=== PATIENT | female | born 1945 | race Caucasian/White ===

== ENCOUNTER 2021-01-19 09:23 | Inpatient (IN) | payer MEDICARE ==
[2021-01-19] MEDS ORDERED: Acetaminophen/HYDROcodone 325-5 MG Tab PO PRN (12:28)
[2021-01-19] MEDS ORDERED: Carboxymethylcellulose Sodium 0.5% Ophth Soln 0.4 ML UD Box of 30 EYEBOTH PRN (12:57)
--- NOTE | 2021-01-19 17:57 | PCM.HP.2 ---
H&P History of Present Illness - General Date of Service: 01/19/21 Admit Problem/Dx: Admission Diagnosis/Problem Admission Diagnosis/Problem Ankle fracture Source of Information: Patient, Old Records History Limitations: Reports: No Limitations - History of Present Illness Initial Comments - Free Text/Narative: This is 75-year-old female patient was at her friend's house and walked outside on a mat slipped and she fell and broke her right ankle. Had repaired in [facility]. She has no concerns or. No chest pressure was better. She says she is a little bit of right rib pain from a fracture that's healing from a former fall. - Related Data Allergies/Adverse Reactions: Allergies Allergy/AdvReac Type Severity Reaction Status Date / Time lisinopril Allergy Cough Verified 01/19/21 15:20 Home Medications: Home Meds Aspirin [Aspirin EC] 325 mg PO BID 01/19/21 [History] Cholecalciferol (Vitamin D3) [Vitamin D3] 25 mcg PO DAILY 01/19/21 [History] Cyanocobalamin (Vitamin B-12) [Vitamin B-12] 1,000 mcg PO MOWEFR 01/19/21 [History] Hydrocodone/Acetaminophen [Hydrocodon-Acetaminophen 5-325] 1 tab PO Q4H PRN 01/19/21 [History] Isosorbide Mononitrate [Imdur] 30 mg PO DAILY 01/19/21 [History] Levothyroxine [Synthroid] 50 mcg PO SUTUWETHSA 01/19/21 [History] Levothyroxine [Synthroid] 75 mcg PO MOFR 01/19/21 [History] Losartan/Hydrochlorothiazide [Losartan-HCTZ 100-12.5 MG] 1 tab PO DAILY 01/19/21 [History] Magnesium Oxide [Magnesium] 400 mg PO DAILY 01/19/21 [History] Metoprolol Succinate [Toprol Xl] 50 mg PO DAILY 01/19/21 [History] Polyvinyl Alcohol/Povidone/Pf [Refresh Classic Eye Drops] 2 drop EYEBOTH TID PRN 01/19/21 [History] Vit C/Vit E AC/Lut/Copper/Zinc [Preservision Lutein Softgel] 2 cap PO DAILY 01/19/21 [History] allopurinoL [Zyloprim] 100 mg PO DAILY 01/19/21 [History] atorvaSTATin [Lipitor] 20 mg PO BEDTIME 01/19/21 [History] Past Medical History Cardiovascular History: Reports: High Cholesterol, Hypertension Social & Family History - Family History Family Medical History: Unobtainable - Tobacco Use Tobacco Use Status *Q: Never Tobacco User - Caffeine Use Caffeine Use: Reports: Coffee - Recreational Drug Use Recreational Drug Use: No H&P Review of Systems - Review of Systems: Review Of Systems: See Below General: Reports: No Symptoms HEENT: Reports: No Symptoms Pulmonary: Reports: No Symptoms Cardiovascular: Reports: No Symptoms Gastrointestinal: Reports: No Symptoms Musculoskeletal: Reports: Other (See history of present illness) Psychiatric: Reports: No Symptoms Neurological: Reports: No Symptoms Hematologic/Lymphatic: Reports: No Symptoms Exam - Exam Exam: See Below - Vital Signs Vital Signs: Last Vital Signs Temp 97.2 F 01/19/21 11:30 Pulse 69 01/19/21 11:30 Resp 16 01/19/21 11:30 BP 134/82 01/19/21 11:30 Pulse Ox 96 01/19/21 11:30 Weight: 198 lb - Exam General: Alert, Oriented, Cooperative HEENT: Mucosa Moist & [place], Posterior Pharynx Clear, TMs Clear Neck: Supple, Trachea Midline Lungs: Clear to Auscultation, Normal Respiratory Effort Cardiovascular: Regular Rate, Regular Rhythm. No: Systolic Murmur GI/Abdominal Exam: Normal Bowel Sounds, Soft, Non-Tender, No Distention Back Exam: Normal Inspection Extremities: No Pedal Edema, Other (Cam Walker right foot) Skin: Warm, Dry, Intact Neurological: Normal Speech, Normal Tone Neuro Extensive - Mental Status: Alert, Oriented x3, Normal Mood/Affect, Normal Cognition Psychiatric: Alert, Normal Affect, Normal Mood Sepsis Event Note - Evaluation Sepsis Screening Result: No Definite Risk - Focused Exam Vital Signs: Vital Signs Temp Pulse Resp BP Pulse Ox Pulse Ox 01/19/21 11:30 97.2 F 69 16 134/82 96 01/19/21 11:24 95 - Problem List (1) Ankle fracture, bimalleolar, closed SNOMED Code(s): 44198635 ICD Code: S82.843A - DISPLACED BIMALLEOLAR FRACTURE OF UNSP LOWER LEG, INIT Status: Acute Current Visit: Yes Problem List Initiated/Reviewed/Updated: Yes Orders Last 24hrs: Active Orders 24 hr Category Date Time Status Patient Status [ADT] Routine ADT 01/19/21 11:42 Active Communication Order [RC] ASDIRECTED Care 01/19/21 16:03 Active May Shower [RC] ASDIRECTED Care 01/19/21 11:42 Active Oxygen Therapy [RC] PRN Care 01/19/21 11:42 Active Up With Assistance [RC] ASDIRECTED Care 01/19/21 11:42 Active Vital Signs [RC] DAILY Care 01/20/21 08:00 Active OT Evaluation and Treatment [CONS] Routine Cons 01/19/21 11:42 Active PT Evaluation and Treatment [CONS] Routine Cons 01/19/21 11:42 Active Regular Diet [DIET] Diet 01/19/21 Lunch Active Acetaminophen/HYDROcodone [[place] 325-5 MG] Med 01/19/21 12:28 Active 1 tab PO Q4H PRN Aspirin [Ecotrin] Med 01/19/21 21:00 Active 325 mg PO BID Carboxymethylcellulose Sodium [Refresh Plus 0.5%] Med 01/19/21 12:57 Active 1 each EYEBOTH TID PRN Cholecalciferol (Vitamin D3) [Vitamin D3] Med 01/20/21 09:00 Active 25 mcg PO DAILY Cyanocobalamin (Vitamin B12) [Vitamin B12] Med 01/20/21 09:00 Active 1,000 mcg PO MOWEFR Hydrochlorothiazide/Losartan [Hyzaar 100-12.5 MG] Med 01/20/21 09:00 Active 1 tab PO DAILY Isosorbide Mononitrate [Imdur] Med 01/20/21 09:00 Active 30 mg PO DAILY Levothyroxine Med 01/22/21 06:00 Active 75 mcg PO MoFr@0600 Levothyroxine [Synthroid] Med 01/20/21 06:00 Active 50 mcg PO SuTuWeThSa@0600 Lutein/Min/Vit C/Vit E Acetate [Ocuvite Lutein] Med 01/20/21 09:00 Active 2 each PO DAILY Magnesium Oxide Med 01/20/21 09:00 Active 400 mg PO DAILY Metoprolol Succinate [Toprol XL] Med 01/20/21 09:00 Active 50 mg PO DAILY allopurinoL [Zyloprim] Med 01/20/21 09:00 Active 100 mg PO DAILY atorvaSTATin [Lipitor] Med 01/19/21 21:00 Active 20 mg PO BEDTIME Resuscitation Status Routine Resus Stat 01/19/21 11:42 Ordered Medication Orders Hydrocodone Bitart/Acetaminophen (Acetaminophen/Hydrocodone 325-5 Mg Tab) 1 tab PO Q4H PRN PRN Reason: Pain Allopurinol (Allopurinol 100 Mg Tab) 100 mg PO DAILY [facility] Artificial Tears (Carboxymethylcellulose Sodium 0.5% Ophth Soln 0.4 Ml Ud Box Of 30) 1 each EYEBOTH TID PRN PRN Reason: Dry Eyes Aspirin (Aspirin 325 Mg Tab.Ec) 325 mg PO BID [facility] Stop: 03/05/21 09:01 Atorvastatin Calcium (Atorvastatin 20 Mg Tab) 20 mg PO BEDTIME [facility] Cholecalciferol (Cholecalciferol (Vitamin D3) 25 Mcg Tab) 25 mcg PO DAILY [facility] Cyanocobalamin (Cyanocobalamin (Vitamin B12) 1,000 Mcg Tab) 1,000 mcg PO MOWEFR [facility] HCTZ/Losartan Potassium (Hydrochlorothiazide/Losartan 12.5-100 Mg Tab) 1 tab PO DAILY [facility] Isosorbide Mononitrate (Isosorbide Mononitrate 30 Mg Tab.Er) 30 mg PO DAILY [facility] Levothyroxine Sodium (Levothyroxine 50 Mcg Tab) 50 mcg PO SuTuWeThSa@0600 [facility] Levothyroxine Sodium (Levothyroxine 75 Mcg Tab) 75 mcg PO MoFr@0600 [facility] Magnesium Oxide (Magnesium Oxide 400 Mg Tab) 400 mg PO DAILY [facility] Metoprolol Succinate (Metoprolol Succinate 50 Mg Tab.Er) 50 mg PO DAILY [facility] Vit C/Vit E/Zinc/Copper/Lutein (Lutein/Minerals/Vitamin C/Vitamin E Acetate Cap) 2 each PO DAILY [facility] Assessment/Plan Comment:: Swing bed. Full code ET/OT Regular diet Resume Up with assist but no weightbearing for-8 weeks on the right foot. - Mortality Measure Prognosis:: Good
[2021-01-19] MEDS: Acetaminophen 325 MG Tab PO PRN (18:24)
[2021-01-19] MEDS: atorvaSTATin 20 MG Tab PO SCH (21:05)
[2021-01-19] MEDS: Aspirin 325 MG Tab.EC PO SCH (21:05)
[2021-01-20] MEDS: Levothyroxine 50 MCG Tab PO SCH (05:07)
[2021-01-20] MEDS: Allopurinol 100 MG Tab PO SCH (08:05)
[2021-01-20] MEDS: Cholecalciferol (Vitamin D3) 25 MCG Tab PO SCH (08:05)
[2021-01-20] MEDS: Hydrochlorothiazide/Losartan 12.5-100 mg Tab PO SCH (08:05)
[2021-01-20] MEDS: Lutein/Minerals/Vitamin C/Vitamin E Acetate Cap PO SCH (08:05)
[2021-01-20] MEDS: Metoprolol Succinate 50 MG Tab.ER PO SCH (08:05)
[2021-01-20] MEDS: Isosorbide Mononitrate 30 MG Tab.ER PO SCH (08:06)
[2021-01-20] MEDS: Aspirin 325 MG Tab.EC PO SCH ×2 (08:06→20:15)
[2021-01-20] MEDS: Cyanocobalamin (Vitamin B12) 1,000 MCG Tab PO SCH (08:06)
[2021-01-20] MEDS: Magnesium Oxide 400 MG Tab PO SCH (08:06)
[2021-01-20] MEDS: Acetaminophen 325 MG Tab PO PRN ×2 (13:31→21:47)
[2021-01-20] MEDS: atorvaSTATin 20 MG Tab PO SCH (20:15)
[2021-01-21] MEDS: Levothyroxine 50 MCG Tab PO SCH (05:52)
[2021-01-21] MEDS: Hydrochlorothiazide/Losartan 12.5-100 mg Tab PO SCH (08:52)
[2021-01-21] MEDS: Aspirin 325 MG Tab.EC PO SCH ×2 (08:52→20:20)
[2021-01-21] MEDS: Lutein/Minerals/Vitamin C/Vitamin E Acetate Cap PO SCH (08:53)
[2021-01-21] MEDS: Magnesium Oxide 400 MG Tab PO SCH (08:53)
[2021-01-21] MEDS: Isosorbide Mononitrate 30 MG Tab.ER PO SCH (08:53)
[2021-01-21] MEDS: Metoprolol Succinate 50 MG Tab.ER PO SCH (08:54)
[2021-01-21] MEDS: Allopurinol 100 MG Tab PO SCH (08:55)
[2021-01-21] MEDS: Cholecalciferol (Vitamin D3) 25 MCG Tab PO SCH (08:55)
[2021-01-21] MEDS: Acetaminophen 325 MG Tab PO PRN ×2 (13:56→20:20)
[2021-01-21] MEDS: atorvaSTATin 20 MG Tab PO SCH (20:20)
[2021-01-22] MEDS: Levothyroxine 75 MCG Tab PO SCH (05:46)
[2021-01-22] MEDS: Allopurinol 100 MG Tab PO SCH (08:19)
[2021-01-22] MEDS: Aspirin 325 MG Tab.EC PO SCH ×2 (08:19→20:41)
[2021-01-22] MEDS: Cholecalciferol (Vitamin D3) 25 MCG Tab PO SCH (08:19)
[2021-01-22] MEDS: Isosorbide Mononitrate 30 MG Tab.ER PO SCH (08:20)
[2021-01-22] MEDS: Lutein/Minerals/Vitamin C/Vitamin E Acetate Cap PO SCH (08:20)
[2021-01-22] MEDS: Hydrochlorothiazide/Losartan 12.5-100 mg Tab PO SCH (08:20)
[2021-01-22] MEDS: Metoprolol Succinate 50 MG Tab.ER PO SCH (08:21)
[2021-01-22] MEDS: Magnesium Oxide 400 MG Tab PO SCH (08:22)
[2021-01-22] MEDS: Cyanocobalamin (Vitamin B12) 1,000 MCG Tab PO SCH (08:22)
[2021-01-22] MEDS: Acetaminophen 325 MG Tab PO PRN ×3 (09:42→21:42)
[2021-01-22] MEDS: atorvaSTATin 20 MG Tab PO SCH (20:41)
[2021-01-23] MEDS: Levothyroxine 50 MCG Tab PO SCH (05:01)
[2021-01-23] MEDS: Aspirin 325 MG Tab.EC PO SCH ×2 (08:06→20:26)
[2021-01-23] MEDS: Hydrochlorothiazide/Losartan 12.5-100 mg Tab PO SCH (08:07)
[2021-01-23] MEDS: Isosorbide Mononitrate 30 MG Tab.ER PO SCH (08:08)
[2021-01-23] MEDS: Magnesium Oxide 400 MG Tab PO SCH (08:09)
[2021-01-23] MEDS: Lutein/Minerals/Vitamin C/Vitamin E Acetate Cap PO SCH (08:10)
[2021-01-23] MEDS: Metoprolol Succinate 50 MG Tab.ER PO SCH (08:11)
[2021-01-23] MEDS: Cholecalciferol (Vitamin D3) 25 MCG Tab PO SCH (08:12)
[2021-01-23] MEDS: Allopurinol 100 MG Tab PO SCH (08:13)
[2021-01-23] MEDS: Acetaminophen 325 MG Tab PO PRN ×2 (11:08→20:27)
[2021-01-23] MEDS: atorvaSTATin 20 MG Tab PO SCH (20:26)
[2021-01-24] MEDS: Levothyroxine 50 MCG Tab PO SCH (06:10)
[2021-01-24] MEDS: Aspirin 325 MG Tab.EC PO SCH ×2 (08:07→20:30)
[2021-01-24] MEDS: Hydrochlorothiazide/Losartan 12.5-100 mg Tab PO SCH (08:07)
[2021-01-24] MEDS: Isosorbide Mononitrate 30 MG Tab.ER PO SCH (08:08)
[2021-01-24] MEDS: Lutein/Minerals/Vitamin C/Vitamin E Acetate Cap PO SCH (08:09)
[2021-01-24] MEDS: Magnesium Oxide 400 MG Tab PO SCH (08:09)
[2021-01-24] MEDS: Metoprolol Succinate 50 MG Tab.ER PO SCH (08:10)
[2021-01-24] MEDS: Cholecalciferol (Vitamin D3) 25 MCG Tab PO SCH (08:11)
[2021-01-24] MEDS: Allopurinol 100 MG Tab PO SCH (08:11)
[2021-01-24] MEDS: Acetaminophen 325 MG Tab PO PRN ×2 (09:25→20:30)
[2021-01-24] MEDS: atorvaSTATin 20 MG Tab PO SCH (20:29)
[2021-01-25] MEDS: Levothyroxine 75 MCG Tab PO SCH (05:49)
[2021-01-25] MEDS: Metoprolol Succinate 50 MG Tab.ER PO SCH (08:33)
[2021-01-25] MEDS: Cholecalciferol (Vitamin D3) 25 MCG Tab PO SCH (08:33)
[2021-01-25] MEDS: Lutein/Minerals/Vitamin C/Vitamin E Acetate Cap PO SCH (08:33)
[2021-01-25] MEDS: Allopurinol 100 MG Tab PO SCH (08:33)
[2021-01-25] MEDS: Isosorbide Mononitrate 30 MG Tab.ER PO SCH (08:34)
[2021-01-25] MEDS: Aspirin 325 MG Tab.EC PO SCH ×2 (08:34→20:05)
[2021-01-25] MEDS: Hydrochlorothiazide/Losartan 12.5-100 mg Tab PO SCH (08:34)
[2021-01-25] MEDS: Magnesium Oxide 400 MG Tab PO SCH (08:34)
[2021-01-25] MEDS: Cyanocobalamin (Vitamin B12) 1,000 MCG Tab PO SCH (09:20)
[2021-01-25] MEDS: atorvaSTATin 20 MG Tab PO SCH (20:05)
[2021-01-25] MEDS: Acetaminophen 325 MG Tab PO PRN (20:05)
[2021-01-26] MEDS: Levothyroxine 50 MCG Tab PO SCH (06:29)
[2021-01-26] MEDS: Aspirin 325 MG Tab.EC PO SCH ×2 (08:46→20:37)
[2021-01-26] MEDS: Hydrochlorothiazide/Losartan 12.5-100 mg Tab PO SCH (08:46)
[2021-01-26] MEDS: Isosorbide Mononitrate 30 MG Tab.ER PO SCH (08:47)
[2021-01-26] MEDS: Lutein/Minerals/Vitamin C/Vitamin E Acetate Cap PO SCH (08:48)
[2021-01-26] MEDS: Magnesium Oxide 400 MG Tab PO SCH (08:48)
[2021-01-26] MEDS: Metoprolol Succinate 50 MG Tab.ER PO SCH (08:48)
[2021-01-26] MEDS: Allopurinol 100 MG Tab PO SCH (08:49)
[2021-01-26] MEDS: Cholecalciferol (Vitamin D3) 25 MCG Tab PO SCH (08:49)
[2021-01-26] MEDS: Acetaminophen 325 MG Tab PO PRN ×2 (16:15→21:54)
[2021-01-26] MEDS: atorvaSTATin 20 MG Tab PO SCH (20:36)
[2021-01-27] MEDS: Levothyroxine 50 MCG Tab PO SCH (05:31)
[2021-01-27] MEDS: Acetaminophen 325 MG Tab PO PRN ×3 (05:33→20:37)
[2021-01-27] MEDS: Isosorbide Mononitrate 30 MG Tab.ER PO SCH (08:24)
[2021-01-27] MEDS: Hydrochlorothiazide/Losartan 12.5-100 mg Tab PO SCH (08:24)
[2021-01-27] MEDS: Aspirin 325 MG Tab.EC PO SCH ×2 (08:24→20:33)
[2021-01-27] MEDS: Magnesium Oxide 400 MG Tab PO SCH (08:25)
[2021-01-27] MEDS: Lutein/Minerals/Vitamin C/Vitamin E Acetate Cap PO SCH (08:25)
[2021-01-27] MEDS: Cholecalciferol (Vitamin D3) 25 MCG Tab PO SCH (08:26)
[2021-01-27] MEDS: Metoprolol Succinate 50 MG Tab.ER PO SCH (08:26)
[2021-01-27] MEDS: Cyanocobalamin (Vitamin B12) 1,000 MCG Tab PO SCH (08:26)
[2021-01-27] MEDS: Allopurinol 100 MG Tab PO SCH (08:27)
--- NOTE | 2021-01-27 08:52 | PCM.PN ---
- General Info Date of Service: 01/27/21 Admission Dx/Problem (Free Text): Admission Diagnosis/Problem Admission Diagnosis/Problem Ankle fracture Subjective Update: Patient states that she is doing quite well and has no new complaints or concerns at this time. She is looking forward to going home on Monday Functional Status: Reports: Pain Controlled, Tolerating Diet, Ambulating, Urinating - Review of Systems General: Reports: No Symptoms HEENT: Reports: No Symptoms Pulmonary: Reports: No Symptoms Cardiovascular: Reports: No Symptoms Gastrointestinal: Reports: No Symptoms Genitourinary: Reports: No Symptoms Musculoskeletal: Reports: Leg Pain Skin: Reports: No Symptoms Neurological: Reports: No Symptoms Psychiatric: Reports: No Symptoms - Patient Data Vitals - Most Recent: Last Vital Signs Temp 36.1 C 01/27/21 08:00 Pulse 62 01/27/21 08:26 Resp 16 01/27/21 08:00 BP 118/69 01/27/21 08:26 Pulse Ox 97 01/27/21 08:00 Weight - Most Recent: 89.811 kg Med Orders - Current: Current Medications Acetaminophen (Acetaminophen 325 Mg Tab) 650 mg PO Q6H PRN PRN Reason: Headache/Pain Last Admin: 01/26/21 21:54 Dose: 650 mg Documented by: Hydrocodone Bitart/Acetaminophen (Acetaminophen/Hydrocodone 325-5 Mg Tab) 1 tab PO Q4H PRN PRN Reason: Pain Allopurinol (Allopurinol 100 Mg Tab) 100 mg PO DAILY [facility] Last Admin: 01/27/21 08:27 Dose: 100 mg Documented by: Artificial Tears (Carboxymethylcellulose Sodium 0.5% Ophth Soln 0.4 Ml Ud Box Of 30) 1 each EYEBOTH TID PRN PRN Reason: Dry Eyes Aspirin (Aspirin 325 Mg Tab.Ec) 325 mg PO BID [facility] Stop: 03/05/21 09:01 Last Admin: 01/27/21 08:24 Dose: 325 mg Documented by: Atorvastatin Calcium (Atorvastatin 20 Mg Tab) 20 mg PO BEDTIME [facility] Last Admin: 01/26/21 20:36 Dose: 20 mg Documented by: Cholecalciferol (Cholecalciferol (Vitamin D3) 25 Mcg Tab) 25 mcg PO DAILY [facility] Last Admin: 01/27/21 08:26 Dose: 25 mcg Documented by: Cyanocobalamin (Cyanocobalamin (Vitamin B12) 1,000 Mcg Tab) 1,000 mcg PO MOWEFR [facility] Last Admin: 01/27/21 08:26 Dose: 1,000 mcg Documented by: HCTZ/Losartan Potassium (Hydrochlorothiazide/Losartan 12.5-100 Mg Tab) 1 tab PO DAILY [facility] Last Admin: 01/27/21 08:24 Dose: 1 tab Documented by: Isosorbide Mononitrate (Isosorbide Mononitrate 30 Mg Tab.Er) 30 mg PO DAILY [facility] Last Admin: 01/27/21 08:24 Dose: 30 mg Documented by: Levothyroxine Sodium (Levothyroxine 50 Mcg Tab) 50 mcg PO SuTuWeThSa@0600 [facility] Last Admin: 01/27/21 05:31 Dose: 50 mcg Documented by: Levothyroxine Sodium (Levothyroxine 75 Mcg Tab) 75 mcg PO MoFr@0600 [facility] Last Admin: 01/25/21 05:49 Dose: 75 mcg Documented by: Magnesium Oxide (Magnesium Oxide 400 Mg Tab) 400 mg PO DAILY [facility] Last Admin: 01/27/21 08:25 Dose: 400 mg Documented by: Metoprolol Succinate (Metoprolol Succinate 50 Mg Tab.Er) 50 mg PO DAILY [facility] Last Admin: 01/27/21 08:26 Dose: 50 mg Documented by: Vit C/Vit E/Zinc/Copper/Lutein (Lutein/Minerals/Vitamin C/Vitamin E Acetate Cap) 2 each PO DAILY [facility] Last Admin: 01/27/21 08:25 Dose: 2 each Documented by: Comments:: Patient was lying in bed supine, awake, alert, oriented, interactive, pleasant - Exam Quality Assessment: Supplemental Oxygen, DVT Prophylaxis, Skin Breakdown General: Alert, Oriented, Cooperative, No Acute Distress HEENT: EOMI Lungs: Clear to Auscultation Cardiovascular: Regular Rate, Regular Rhythm, No Murmurs GI/Abdominal Exam: Normal Bowel Sounds Extremities: Pedal Edema, Other (Protective boot on the right foot and lower leg, trace edema left lower leg) Peripheral Pulses: 2+: Radial (L), Radial (R), Dorsalis Pedis (L) Skin: Warm, Dry Neurological: No New Focal Deficit Psy/Mental Status: Alert, Normal Affect, Normal Mood Sepsis Event Note - Evaluation Sepsis Screening Result: No Definite Risk - Focused Exam Vital Signs: Vital Signs Temp Pulse Pulse Resp BP BP Pulse Ox 01/27/21 08:26 62 118/69 01/27/21 08:24 118/69 01/27/21 08:00 36.1 C 62 16 118/69 97 - Problem List & Annotations (1) Ankle fracture, bimalleolar, closed SNOMED Code(s): 97071910 Code(s): S82.843A - DISPLACED BIMALLEOLAR FRACTURE OF UNSP LOWER LEG, INIT Status: Acute Current Visit: Yes (2) Gout SNOMED Code(s): 53097926 Code(s): M10.9 - GOUT, UNSPECIFIED Status: Chronic Current Visit: Yes (3) Hypothyroid SNOMED Code(s): 84257538 Code(s): E03.9 - HYPOTHYROIDISM, UNSPECIFIED Status: Chronic Current Visit: Yes (4) Hyperlipidemia SNOMED Code(s): 88183178 Code(s): E78.5 - HYPERLIPIDEMIA, UNSPECIFIED Status: Chronic Current Visit: Yes (5) Hypertension SNOMED Code(s): 59502967 Code(s): I10 - ESSENTIAL (PRIMARY) HYPERTENSION Status: Chronic Current Visit: Yes - Problem List Review Problem List Initiated/Reviewed/Updated: Yes - My Orders Last 24 Hours: My Active Orders 01/26/21 17:40 CHHAYA Hose [Antiembolic Hose] [OM.PC] Routine - Plan Plan:: Up with assist but no weightbearing for-8 weeks on the right foot. Patient had follow-up appointment yesterday with podiatry. Received her protective boot and instructions for continued no weightbearing until the middle of February. She reports that she is doing well with her physical and occupational therapy and is working on her balance. She reports improved upper body strength. He had no new concerns or complaints at this time. Continue current treatment Disposition: Likely home with assistance on 01/29/2021
[2021-01-27] MEDS: atorvaSTATin 20 MG Tab PO SCH (20:33)
[2021-01-28] MEDS: Levothyroxine 50 MCG Tab PO SCH (06:18)
[2021-01-28] MEDS: Hydrochlorothiazide/Losartan 12.5-100 mg Tab PO SCH (08:46)
[2021-01-28] MEDS: Aspirin 325 MG Tab.EC PO SCH ×2 (08:46→21:09)
[2021-01-28] MEDS: Isosorbide Mononitrate 30 MG Tab.ER PO SCH (08:47)
[2021-01-28] MEDS: Lutein/Minerals/Vitamin C/Vitamin E Acetate Cap PO SCH (08:47)
[2021-01-28] MEDS: Magnesium Oxide 400 MG Tab PO SCH (08:47)
[2021-01-28] MEDS: Cholecalciferol (Vitamin D3) 25 MCG Tab PO SCH (08:48)
[2021-01-28] MEDS: Allopurinol 100 MG Tab PO SCH (08:48)
[2021-01-28] MEDS: Metoprolol Succinate 50 MG Tab.ER PO SCH (08:48)
[2021-01-28] MEDS: Acetaminophen 325 MG Tab PO PRN ×2 (15:39→21:11)
[2021-01-28] MEDS: atorvaSTATin 20 MG Tab PO SCH (21:10)
[2021-01-29] MEDS: Levothyroxine 75 MCG Tab PO SCH (05:35)
[2021-01-29] MEDS: Hydrochlorothiazide/Losartan 12.5-100 mg Tab PO SCH (09:19)
[2021-01-29] MEDS: Aspirin 325 MG Tab.EC PO SCH (09:19)
[2021-01-29] MEDS: Isosorbide Mononitrate 30 MG Tab.ER PO SCH (09:20)
[2021-01-29] MEDS: Magnesium Oxide 400 MG Tab PO SCH (09:22)
[2021-01-29] MEDS: Lutein/Minerals/Vitamin C/Vitamin E Acetate Cap PO SCH (09:23)
[2021-01-29] MEDS: Cyanocobalamin (Vitamin B12) 1,000 MCG Tab PO SCH (09:23)
[2021-01-29] MEDS: Allopurinol 100 MG Tab PO SCH (09:23)
[2021-01-29] MEDS: Cholecalciferol (Vitamin D3) 25 MCG Tab PO SCH (09:23)
[2021-01-29] MEDS: Metoprolol Succinate 50 MG Tab.ER PO SCH (09:23)
--- NOTE | 2021-01-29 14:52 | DISCH ---
DISCHARGE DATE: 01/29/2021 REASON FOR ADMISSION: 1. General debility. 2. Bimalleolar ankle fracture. 3. Hypertension. BRIEF HISTORY AND HOSPITAL COURSE: A 75-year-old female who had a bimalleolar fracture and was treated at [facility], brought in on the for rehab and strengthening. She has been doing very well and ready to go home today. She will go home with home health because she is homebound due to the fracture and continued need for therapy. She will be discharged on 325 mg of aspirin twice a day along with her previous home prescriptions. She has not used any hydrocodone for pain here and this was discontinued. FOLLOWUP: Please see PCP in 1 week. I spent more than 35 minutes in the discharge of the patient. /[id number] SAMANTHA/LYNDSAY
== END 2021-01-29 13:40 | disposition home health service (06) | DRG 561 ==
LOC: FB.MS 11:24
PROVIDERS: ADMIT Family Medicine; ATTEND Family Medicine
DX: S82.841D Displaced bimalleolar fracture of right lower leg, subsequent encounter for closed fracture with routine healing (principal); W01.0XXD Fall on same level from slipping, tripping and stumbling without subsequent striking against object, subsequent encounter; E78.00 Pure hypercholesterolemia, unspecified; I10 Essential (primary) hypertension; M10.9 Gout, unspecified; E03.9 Hypothyroidism, unspecified; E78.5 Hyperlipidemia, unspecified; R53.81 Other malaise; Z88.8 Allergy status to other drugs, medicaments and biological substances; Z79.82 Long term (current) use of aspirin; Z79.899 Other long term (current) drug therapy; Z79.890 Hormone replacement therapy
CPT/HCPCS: 94760; 97110-GP; 97116-GP; 97162-GP; 97165-GO; 97530-GO; 97530-GP; 97535-GO; A9270-GY